=== PATIENT | female | born 1935 | race Caucasian/White ===

== ENCOUNTER 2019-07-27 08:02 | Emergency (ER) | payer MEDICARE, OTHER ==
--- NOTE | 2019-07-27 08:41 | Emergency Department Record ---
History of Present Illness - General Chief Complaint: Cough Stated Complaint: COUGHING/CONGESTION/SOB Time Seen by Provider: 07/27/19 08:29 Source: Patient Mode of Arrival: Ambulatory Limitations: No limitations - History of Present Illness Initial Comments: The patient is here due to a 2-3 day hx of cough, nasal congestion and drainage. She denies any fever, chills, vomiting, Cp or SOB. The patient did not receive a Flu shot this year. MD Complaint: Cough, Nasal congestion, Rhinorrhea Onset/Timin -: Days(s) - Related Data Home Medications Medication Instructions Recorded Confirmed Last Taken Lisinopril 10 mg PO DAILY 07/27/19 07/27/19 07/26/19 Simvastatin 40 mg PO QHS 07/27/19 07/27/19 07/26/19 Triamterene/Hydrochlorothiazid 1 each PO DAILY 07/27/19 07/27/19 07/26/19 [Triamterene-Hctz 37.5-25 mg Cp] Previous Rx's Medication Instructions Recorded Doxycycline Monohydrate [Mondoxyne 100 mg PO BID 7 Days #14 capsule 07/27/19 Nl] Fluticasone Propionate [Flonase] 2 spray EACH NARES DAILY #1 bottle 07/27/19 Allergies Allergy/AdvReac Type Severity Reaction Status Date / Time No Known Drug Allergies Allergy Verified 07/27/19 08:22 Travel Screening - Travel/Exposure Within Last 30 Days Have you traveled within the last 30 days?: No - Travel/Exposure Within Last Year Have you traveled outside the [place] in the last year?: No - Additonal Travel Details Have you been exposed to anyone with a communicable illness?: No - Travel Symptoms Symptom Screening: None Review of Systems Constitutional: Reports: Malaise. Denies: Chills, Fever Eyes: Denies: Eye discharge ENT: Reports: Congestion Respiratory: Reports: Cough. Denies: Dyspnea Cardiovascular: Denies: Arrhythmia, Chest pain Endocrine: Reports: Fatigue Gastrointestinal: Denies: Nausea Genitourinary: Denies: Dysuria Musculoskeletal: Denies: Arthralgia Neurological: Denies: Abnormal gait Past Medical History - SOCIAL HISTORY Smoking Status: Never smoker Alcohol Use: None Drug Use: None - RESPIRATORY Hx Respiratory Disorders: No - CARDIOVASCULAR Hx Cardio Disorders: Yes Hx Hypertension: Yes - NEURO Hx Neuro Disorders: No - GI Hx GI Disorders: No - Hx Genitourinary Disorders: No - ENDOCRINE Hx Endocrine Disorders: No - MUSCULOSKELETAL Hx Musculoskeletal Disorders: No - HEMATOLOGY/ONCOLOGY Hx Hematology/Oncology Disorders: No Family Medical History Any Significant Family History?: No Physical Exam - General General Appearance: Alert, Oriented x3, Cooperative, No acute distress - Head Head exam: Atraumatic, Normocephalic, Normal inspection - Eye Eye exam: Normal appearance, PERRL, EOMI - ENT ENT exam: TM's normal bilaterally. negative: Normal exam Ear exam: Normal external inspection. negative: External canal tenderness Nasal Exam: Discharge Throat exam: Normal inspection. negative: Tonsillar erythema, Tonsillar exudate - Neck Neck exam: Normal inspection, Full ROM. negative: Tenderness - Respiratory Respiratory exam: Normal lung sounds bilaterally. negative: Respiratory distress - Cardiovascular Cardiovascular Exam: Regular rate, Normal rhythm, Normal heart sounds, Tachycardia (mild.) - GI/Abdominal GI/Abdominal exam: Soft, Normal bowel sounds. negative: Tenderness - Extremities Extremities exam: Normal inspection, Full ROM, Normal capillary refill. negative: Tenderness - Neurological Neurological exam: Alert. negative: Motor sensory deficit Course Vital Signs 07/27/19 08:26 Temperature 98.6 F Pulse Rate 108 H Respiratory 20 Rate Blood Pressure 156/88 Pulse Ox 95 - Reevaluation(s) Reevaluation #1: The patient is doing very well at this time. I did discuss the neg workup for Influenza and pneumonia. Due to her age and exam we will place the patient on Flonase and Doxycycline. She is to see her PCP next week if not better. 07/27/19 09:48 Medical Decision Making - Data Complexity MDM Data: Labs Ordered and/or Reviewed, X-Ray Ordered and/or Reviewed - Lab Data Result diagrams: 07/27/19 08:35 07/27/19 08:45 - Radiology Data Radiology results: Report reviewed (CXR: Neg for acute infiltrate.) Disposition Disposition: Discharge Clinical Impression: Sinusitis Qualifiers: Sinusitis location: unspecified location Chronicity: acute Recurrence: not specified as recurrent Qualified Code(s): J01.90 - Acute sinusitis, unspecified Disposition: Home, Self-Care Condition: (2) Stable Instructions: Rhinosinusitis (ED) Additional Instructions: Please take the Doxycycline and Flonase as directed and please see your family doctor next week if not better. Return to the ER for any worsening symptoms, any pain, high fever or any trouble breathing. Prescriptions: Fluticasone Propionate [Flonase] 2 spray EACH NARES DAILY #1 bottle Doxycycline Monohydrate [Mondoxyne Nl] 100 mg PO BID 7 Days #14 capsule Forms: Patient Portal Access Time of Disposition: 09:50 Quality - Quality Measures Quality Measures: N/A - Blood Pressure Screening View Details: Yes Does Patient Have Any of the Following: Active Dx of HTN Blood Pressure Classification: Pre-Hypertensive BP Reading Systolic Measurement: 130 Diastolic Measurement: 80 Screening for High Blood Pressure: Patient Exclusion, Hx of HTN [[id number]]
[2019-07-27 08:59] LABS: ABSOLUTE NEUTROPHIL COUNT 6.06; BASO % 0.4 % (0-6); EOS % 1.7 % (0-6); GRAN % 74.1 % (47-80); HEMATOCRIT 42.4 % (35.0-47.0); HEMOGLOBIN 14.1 gm/dl (11.6-16.0); LYMPH % 14.8 % (16-45); MEAN CELL VOLUME 94.4 fl (81-97); MEAN CORPUSCULAR HEMOGLOBIN 31.4 pg (27-33); MEAN CORPUSCULAR HGB CONC 33.3 g/dl (32-36); MEAN PLATELET VOLUME 9.6 fl (7.4-10.4); PLATELET COUNT 206 K/uL (130-400); RED BLOOD COUNT 4.49 M/uL (3.80-5.40); RED CELL DISTRIBUTION WIDTH 12.5 % (11.5-14.5); WHITE BLOOD COUNT W/O DIFF 8.2 K/uL (4.2-12.2)
[2019-07-27 09:00] LABS: INFLUENZA A NEGATIVE (NEGATIVE); INFLUENZA B NEGATIVE (NEGATIVE)
[2019-07-27 09:09] LABS: BLOOD UREA NITROGEN 11 mg/dL (8-23); CREATININE 0.5 mg/dL (0.5-0.9); EST GLOMERULAR FILTRATION RATE > 60 mL/min; TOTAL PROTEIN 7.3 g/dL (6.6-8.7)
[2019-07-27 09:11] LABS: GLUCOSE,RANDOM 112 mg/dL (74-109)
[2019-07-27 09:14] LABS: ALB/GLOB RATIO 1.6 (1.1-1.8); ALBUMIN 4.5 g/dL (4.0-5.0); ALKALINE PHOSPHATASE 67 U/L (35-104); ALT/SGPT 18 U/L (<33); AST/SGOT 31 U/L (10.0-35.0); C-REACTIVE PROTEIN 1.12 mg/dL (<0.5)
--- NOTE | 2019-07-27 09:42 | RADIOLOGY REPORT ---
EXAMINATION: Two View Chest Radiographs EXAM DATE: 07/27/2019 9:24 AM TECHNIQUE: Frontal and lateral views INDICATION: cough COMPARISON: None ENCOUNTER: Not applicable FINDINGS: Cardiomediastinal structures unremarkable. Hyperinflation. No pulmonary consolidation. Bibasilar disc oid atelectasis or scarring. No pneumothorax or pleural effusion. IMPRESSION: 1. Hyperinflation 2. Bibasilar discoid atelectasis or scarring Dictated by: Zach Luke MD on 07/27/2019 9:32 AM. .
== END 2019-07-27 10:02 | disposition home or self-care (01) ==
LOC: ER 08:02
DX: J01.90 Acute sinusitis, unspecified (principal); R05 Cough; R06.02 Shortness of breath; I10 Essential (primary) hypertension
CPT/HCPCS: 71046; 80053; 85025; 86140; 87400; 99284